=== PATIENT | female | born 1995 | race American Indian/Alaskan Native ===

== ENCOUNTER 2016-12-19 11:51 | Outpatient (CLI) | payer OTHER ==
[~2016-12-19] VITALS: Ht 157.5 cm; Wt 119.5 kg
[~2016-12-19 11:51] MED LIST: ACEPHEN325 MG PR; ACYCLOVIR400 MG PO; AZITHROMYCIN250 MG PO; BENADRYL25 MG PO; CEFDINIR300 MG PO; CITALOPRAM HBR20 MG PO; CONCERTA36 MG PO; FLAGYL500 MG PO; LABETALOL HCL100 MG PO; LAMOTRIGINE25 M2 PO; LOTRIMIN AF24 GM TP; MACROBID100 MG PO; MOBIC7.5 MG PO; MOTRIN800 MG PO; MUCINEX1200 MG PO; NASALCROM NASAL13 ML BOTH NARES; OCEAN NASAL 0.645 ML BOTH NARES; PREDNISONE10 M1 PO; PREDNISONE50 MG PO; PRENATAL TABLE1 EAC3 PO; PRENATAL TABLE1 EACH PO; PRENATAL VITAM1 EAC7 PO; PYRIDIUM200 MG PO; STRATTERA40 MG PO; TESSALON PERLE100 MG PO; VALTREX1000 MG PO; VYVANSE50 MG; ZANTAC150 MG PO; ZOFRAN ODT4 MG PO; ZOLOFT50 MG PO
[2016-12-19 12:22] VITALS: BP 132/78
[2016-12-19] MEDS ORDERED: VALTREX50 MG/ML PO (14:29)
[2016-12-19] MEDS ORDERED: TYLENOL EXTRA500 MG PO (14:30)
[2016-12-19 14:34] LABS: AMPHETAMINES QUANT VALUE 0 NG/ML; BARBITUATES QUANT VALUE 0 NG/ML; BENZODIAZEPINES QUANT VALUE 0 NG/ML; BENZODIAZEPINES, URINE SCREEN Negative (200 ng/mL); MARIJUANA QUANT VALUE 0 NG/ML; OPIATES QUANTITATIVE VALUE 0 NG/ML; PHENCYCLIDINE QUANT VALUE 0 NG/ML
[2016-12-19 15:02] LABS: DRSB INTERNAL CONTROL PASS; PROBE CHECK PASS; SPECIMEN PROCESSING CONTROL PASS
== END 2016-12-19 19:40 | disposition home or self-care (01) ==
LOC: EME 11:51 → EDSTATUS 12:00 → LDRP-OP 12:03 → 2WEST 12:04
PROVIDERS: Advanced Practice Midwife
DX: O46.93 Antepartum hemorrhage, unspecified, third trimester (principal); Z3A.37 37 weeks gestation of pregnancy
CPT/HCPCS: 59025; 76805; 87081; 87653; G0378

== ENCOUNTER 2016-12-26 13:38 | Outpatient (CLI) | payer OTHER ==
[~2016-12-26] VITALS: Ht 157.5 cm; Wt 113.3 kg
[~2016-12-26 13:38] MED LIST changes: +TYLENOL EXTRA500 MG PO; +VALTREX50 MG/ML PO
[2016-12-26 13:53] VITALS: BP 122/72
[2016-12-26 14:47] VITALS: BP 127/60
== END 2016-12-26 16:09 | disposition home or self-care (01) ==
LOC: LDRP-OP → 2WEST 13:39 → LDRP-OP 02-08 10:22
DX: O26.893 Other specified pregnancy related conditions, third trimester (principal); Z3A.34 34 weeks gestation of pregnancy
CPT/HCPCS: 59025; G0378

== ENCOUNTER 2016-12-27 15:04 | Inpatient (IN) | payer OTHER ==
[~2016-12-27] VITALS: Ht 157.5 cm; Wt 115.0 kg
[2016-12-27] VITALS (8 sets, daily range): BP systolic 127–144; BP diastolic 62–85
[2016-12-27 16:49] LABS: EOSINOPHIL (%) 0.4 % (0-5); EOSINOPHIL COUNT 0.1 K/uL (0-0.3); HEMATOCRIT 37.3 % (36.0-46.0); IMMATURE GRANULOCYTE (%) 0.4 % (0.0-0.7); IMMATURE GRANULOCYTE COUNT 0.1 K/uL; LYMPHOCYTE COUNT 3.1 K/uL (1.0-2.8); MCH 26.8 PG (29.0-34.0); MCHC 33.2 G/DL (30.0-36.0); MCV 80.6 FL (83-99); MEAN PLAT.VOLUME 10.6 uM^3 (9.5-12.4); MONOCYTE COUNT 0.8 K/uL (0-0.8); NEUTROPHIL (%) 71.3 % (45-76); PLATELET COUNT 306 K/uL (156-360); RBC DIS.WIDTH-CV 15.3 % (11.8-14.6); RBC DIS.WIDTH-SD 44.2 % (39-53); RED BLOOD COUNT 4.63 M/uL (3.80-5.20)
[2016-12-28 07:40] LABS: EOSINOPHIL (%) 0.6 % (0-5); EOSINOPHIL COUNT 0.1 K/uL (0-0.3); HEMATOCRIT 31.8 % (36.0-46.0); IMMATURE GRANULOCYTE (%) 0.3 % (0.0-0.7); LYMPHOCYTE COUNT 3.3 K/uL (1.0-2.8); MCH 26.1 PG (29.0-34.0); MCHC 32.4 G/DL (30.0-36.0); MCV 80.7 FL (83-99); MONOCYTE COUNT 0.7 K/uL (0-0.8); NEUTROPHIL (%) 70.8 % (45-76); NEUTROPHIL COUNT 10.1 K/uL (1.8-6.4); RBC DIS.WIDTH-CV 15.1 % (11.8-14.6); RBC DIS.WIDTH-SD 44.1 % (39-53); RED BLOOD COUNT 3.94 M/uL (3.80-5.20); WHITE BLOOD COUNT 14.3 K/uL (4.1-10.2)
[2016-12-28 08:38] LABS: PLATELET COUNT UNABLE TO REPORT K/uL (156-360); USER ID TLW
[2016-12-28 08:43] VITALS: BP 120/74
[2016-12-28 15:20] VITALS: BP 132/79
[2016-12-28 22:43] VITALS: BP 129/81
[2016-12-29] MEDS ORDERED: IBUPROFEN800 MG PO (09:40)
[2016-12-29] MEDS ORDERED: CAMILA0.35 MG PO (09:41)
== END 2016-12-29 13:08 | disposition home or self-care (01) | DRG 774 ==
LOC: LDRP-OP 15:04 → 2WEST 15:05 → LDRP-OP 02-06 16:17
PROVIDERS: Advanced Practice Midwife
DX: O70.0 First degree perineal laceration during delivery (principal); Z3A.38 38 weeks gestation of pregnancy; Z37.0 Single live birth; E66.01 Morbid (severe) obesity due to excess calories; Z68.43 Body mass index [BMI] 50.0-59.9, adult; A60.09 Herpesviral infection of other urogenital tract; O98.32 Other infections with a predominantly sexual mode of transmission complicating childbirth; O99.214 Obesity complicating childbirth
CPT/HCPCS: 85025; J0595; J7120

== ENCOUNTER 2017-03-04 15:53 | Emergency (ER) | payer OTHER ==
[~2017-03-04] VITALS: Ht 157.5 cm; Wt 84.7 kg
[~2017-03-04 15:53] MED LIST changes: +CAMILA0.35 MG PO; +IBUPROFEN800 MG PO
[2017-03-04 18:33] VITALS: BP 121/73
== END 2017-03-04 18:33 | disposition home or self-care (01) ==
LOC: EXP 15:53 → EME 15:53 → EXP 18:33
DX: R11.0 Nausea (principal); R10.31 Right lower quadrant pain; Z87.440 Personal history of urinary (tract) infections; Z91.5 Personal history of self-harm; Z87.891 Personal history of nicotine dependence
CPT/HCPCS: 99281; 99283

== ENCOUNTER 2017-03-27 17:54 | Emergency (ER) | payer OTHER ==
[~2017-03-27] VITALS: Ht 157.5 cm; Wt 116.9 kg
[2017-03-27 18:30] VITALS: BP 152/94
[2017-03-27 19:04] LABS: QUANTITATIVE HCG 84.7 MIU/ML
[2017-03-27 19:06] LABS: HEMATOCRIT 36.3 % (36.0-46.0); MCHC 31.7 G/DL (30.0-36.0); MCV 81.9 FL (83-99); MEAN PLAT.VOLUME 10.7 uM^3 (9.5-12.4); PLATELET COUNT 307 K/uL (156-360); RBC DIS.WIDTH-CV 15.3 % (11.8-14.6); RBC DIS.WIDTH-SD 46.1 % (39-53); RED BLOOD COUNT 4.43 M/uL (3.80-5.20)
[2017-03-27 19:09] LABS: CHLORIDE 108 mEq/L (99-109); POTASSIUM 4.1 mEq/L (3.7-5.4); SODIUM 140 mEq/L (136-147)
[2017-03-27 19:11] LABS: GLUCOSE 98 mg/dL (70-99)
[2017-03-27 19:12] LABS: ANION GAP 9 MEQ/L (2-14)
[2017-03-27 19:13] LABS: TOTAL BILIRUBIN 0.4 mg/dL (0.0-1.0)
[2017-03-27 19:14] LABS: ALKALINE PHOSPHATASE 80 IU/L (3-129)
[2017-03-27 19:15] LABS: GFR ESTIMATE (CALCULATED) > 59 mL/min/
[2017-03-27 19:16] LABS: UREA NITROGEN (BUN) 13 mg/dL (9-23)
[2017-03-27 19:18] LABS: LIPASE 10 U/L (1.0-51.0)
[2017-03-27 19:19] LABS: ADD MIUA? YES; BILIRUBIN NEGATIVE; BLOOD SMALL; COLOR YELLOW ((YELLOW)); GLUCOSE (STRIP) NEGATIVE; KETONES NEGATIVE; LEUKOCYTES LARGE; NITRITE NEGATIVE; PROTEIN (STRIP) 30; SPECIFIC GRAVITY 1.015 (1.000-1.030); UROBILINOGEN 0.2 MG/DL (0.2-1.0)
[2017-03-27] MEDS ORDERED: KEFLEX500 MG PO (19:34)
[2017-03-27 19:42] LABS: BACTERIA 1+ /HPF; EPITHELIAL CELLS 3+ /HPF; MUCUS NONE SEEN /LPF; RED BLOOD CELLS 0-5 /HPF (0-5); WHITE BLOOD CELLS 40-50 /HPF (0-5)
== END 2017-03-27 19:50 | disposition home or self-care (01) ==
LOC: EME 17:54
PROVIDERS: Nurse Practitioner Family
DX: O23.41 Unspecified infection of urinary tract in pregnancy, first trimester (principal); Z87.891 Personal history of nicotine dependence
CPT/HCPCS: 80053; 81003; 83690; 84702; 85027; 99281; 99284

== ENCOUNTER 2017-04-26 16:07 | Emergency (ER) | payer OTHER ==
[~2017-04-26] VITALS: Ht 157.5 cm; Wt 119.3 kg
[~2017-04-26 16:07] MED LIST changes: +KEFLEX500 MG PO
[2017-04-26 18:15] LABS: ADD MIUA? YES; BILIRUBIN NEGATIVE; BLOOD NEGATIVE; COLOR YELLOW ((YELLOW)); GLUCOSE (STRIP) NEGATIVE; KETONES NEGATIVE; LEUKOCYTES LARGE; NITRITE NEGATIVE; PROTEIN (STRIP) 30; SPECIFIC GRAVITY 1.024 (1.000-1.030); UROBILINOGEN 0.2 MG/DL (0.2-1.0)
[2017-04-26 18:28] LABS: INTERNAL CONTROL VALID? YES
[2017-04-26 18:32] LABS: BACTERIA RARE /HPF; EPITHELIAL CELLS 2+ /HPF; MUCUS TRACE /LPF; RED BLOOD CELLS NONE SEEN /HPF (0-5); UCUL ADDED? NO; WHITE BLOOD CELLS 30-40 /HPF (0-5)
[2017-04-26] MEDS ORDERED: MONISTAT VG (22:45)
[2017-04-26 23:14] VITALS: BP 127/63
== END 2017-04-26 23:16 | disposition home or self-care (01) ==
LOC: EME 16:07
DX: O26.891 Other specified pregnancy related conditions, first trimester (principal); R10.2 Pelvic and perineal pain; Z3A.08 8 weeks gestation of pregnancy; Z87.891 Personal history of nicotine dependence
CPT/HCPCS: 76801; 81003; 84702; 84703; 99281; 99284

== ENCOUNTER 2017-05-23 18:24 | Emergency (ER) | payer OTHER ==
[~2017-05-23] VITALS: Ht 157.5 cm; Wt 116.5 kg
[~2017-05-23 18:24] MED LIST changes: +MONISTAT VG
[2017-05-23 21:04] LABS: HEMATOCRIT 37.7 % (36.0-46.0); MCH 26.4 PG (29.0-34.0); MCHC 32.4 G/DL (30.0-36.0); MCV 81.6 FL (83-99); MEAN PLAT.VOLUME 10.9 uM^3 (9.5-12.4); PLATELET COUNT 291 K/uL (156-360); RBC DIS.WIDTH-CV 14.8 % (11.8-14.6); RBC DIS.WIDTH-SD 43.5 % (39-53); RED BLOOD COUNT 4.62 M/uL (3.80-5.20); WHITE BLOOD COUNT 12.4 K/uL (4.1-10.2)
[2017-05-23 21:16] LABS: ADD MIUA? YES; BILIRUBIN NEGATIVE; BLOOD SMALL; COLOR AMBER ((YELLOW)); GLUCOSE (STRIP) NEGATIVE; KETONES NEGATIVE; LEUKOCYTES LARGE; NITRITE NEGATIVE; PROTEIN (STRIP) 30; SPECIFIC GRAVITY 1.024 (1.000-1.030); UROBILINOGEN 0.2 MG/DL (0.2-1.0)
[2017-05-23 21:16] LABS: CHLORIDE 106 mEq/L (99-109); POTASSIUM 3.9 mEq/L (3.7-5.4); SODIUM 137 mEq/L (136-147)
[2017-05-23 21:18] LABS: GLUCOSE 80 mg/dL (70-99)
[2017-05-23 21:19] LABS: ANION GAP 9 MEQ/L (2-14)
[2017-05-23 21:20] LABS: TOTAL BILIRUBIN 0.3 mg/dL (0.0-1.0)
[2017-05-23 21:22] LABS: ALKALINE PHOSPHATASE 66 IU/L (3-129); GFR ESTIMATE (CALCULATED) > 59 mL/min/
[2017-05-23 21:23] LABS: UREA NITROGEN (BUN) 7 mg/dL (9-23)
[2017-05-23 21:36] LABS: BACTERIA 3+ /HPF; CASTS NONE SEEN /LPF; CRYSTALS NONE SEEN; EPITHELIAL CELLS 2+ /HPF; MUCUS NONE SEEN /LPF; UCUL ADDED? YES; WHITE BLOOD CELLS TNTC /HPF (0-5)
[2017-05-23 21:55] LABS: QUANTITATIVE HCG 66611.9 MIU/ML
[2017-05-23] MEDS ORDERED: ACYCLOVIR400 MG PO (22:14)
[2017-05-23] MEDS ORDERED: KEFLEX500 MG PO (22:14)
[2017-05-23 22:36] VITALS: BP 141/80
== END 2017-05-23 22:37 | disposition home or self-care (01) ==
LOC: EME 18:24
PROVIDERS: Nurse Practitioner Family
DX: O20.0 Threatened abortion (principal); O23.41 Unspecified infection of urinary tract in pregnancy, first trimester; O98.511 Other viral diseases complicating pregnancy, first trimester; B00.9 Herpesviral infection, unspecified; Z3A.12 12 weeks gestation of pregnancy; Z87.891 Personal history of nicotine dependence
CPT/HCPCS: 76801; 80053; 81003; 84702; 85027; 87086; 99281; 99284

== ENCOUNTER 2017-05-27 22:36 | Emergency (ER) | payer OTHER ==
[~2017-05-27] VITALS: Ht 157.5 cm; Wt 116.2 kg
[2017-05-27 23:18] LABS: HEMATOCRIT 35.3 % (36.0-46.0); MCHC 33.4 G/DL (30.0-36.0); MCV 80.8 FL (83-99); MEAN PLAT.VOLUME 10.8 uM^3 (9.5-12.4); PLATELET COUNT 263 K/uL (156-360); RBC DIS.WIDTH-CV 14.7 % (11.8-14.6); RED BLOOD COUNT 4.37 M/uL (3.80-5.20); WHITE BLOOD COUNT 12.6 K/uL (4.1-10.2)
[2017-05-28 01:56] LABS: ADD MIUA? YES; BILIRUBIN NEGATIVE; BLOOD LARGE; GLUCOSE (STRIP) NEGATIVE; KETONES NEGATIVE; LEUKOCYTES LARGE; NITRITE NEGATIVE; PROTEIN (STRIP) 100; UROBILINOGEN 0.2 MG/DL (0.2-1.0)
[2017-05-28 02:00] LABS: COLOR RED ((YELLOW))
[2017-05-28 02:23] LABS: RED BLOOD CELLS TNTC /HPF (0-5); UCUL ADDED? YES; WHITE BLOOD CELLS TNTC /HPF (0-5)
[2017-05-28 04:21] VITALS: BP 128/75
== END 2017-05-28 04:22 | disposition home or self-care (01) ==
LOC: EXP 22:36 → EME 22:36 → EXP 05-28 04:22
PROVIDERS: Emergency Medicine
DX: O20.9 Hemorrhage in early pregnancy, unspecified (principal); Z3A.12 12 weeks gestation of pregnancy; Z87.891 Personal history of nicotine dependence
CPT/HCPCS: 76801; 81003; 84702; 85027; 86870; 86900; 86901; 87086; 99281; 99284

== ENCOUNTER 2017-07-29 18:36 | Emergency (ER) | payer OTHER ==
[~2017-07-29] VITALS: Ht 157.5 cm; Wt 117.6 kg
[2017-07-29 20:07] LABS: HEMATOCRIT 34.7 % (36.0-46.0); MCH 26.8 PG (29.0-34.0); MCHC 32.6 G/DL (30.0-36.0); MCV 82.2 FL (83-99); MEAN PLAT.VOLUME 10.6 uM^3 (9.5-12.4); PLATELET COUNT 268 K/uL (156-360); RBC DIS.WIDTH-CV 14.7 % (11.8-14.6); RBC DIS.WIDTH-SD 43.7 % (39-53); RED BLOOD COUNT 4.22 M/uL (3.80-5.20); WHITE BLOOD COUNT 12.9 K/uL (4.1-10.2)
[2017-07-29 20:15] LABS: ADD MIUA? YES; BILIRUBIN NEGATIVE; BLOOD SMALL; COLOR AMBER ((YELLOW)); GLUCOSE (STRIP) NEGATIVE; KETONES NEGATIVE; LEUKOCYTES LARGE; NITRITE NEGATIVE; PROTEIN (STRIP) >=500; SPECIFIC GRAVITY 1.028 (1.000-1.030)
[2017-07-29 20:24] LABS: CHLORIDE 106 mEq/L (99-109); POTASSIUM 3.7 mEq/L (3.7-5.4); SODIUM 138 mEq/L (136-147)
[2017-07-29 20:26] LABS: GLUCOSE 85 mg/dL (70-99)
[2017-07-29 20:27] LABS: ANION GAP 10 MEQ/L (2-14)
[2017-07-29 20:28] LABS: TOTAL BILIRUBIN 0.2 mg/dL (0.0-1.0)
[2017-07-29 20:29] LABS: ALKALINE PHOSPHATASE 68 IU/L (3-129)
[2017-07-29 20:30] LABS: GFR ESTIMATE (CALCULATED) > 59 mL/min/
[2017-07-29 20:31] LABS: UREA NITROGEN (BUN) 4 mg/dL (9-23)
[2017-07-29 20:39] LABS: QUANTITATIVE HCG 14156.7 MIU/ML
[2017-07-29 20:43] LABS: BACTERIA RARE /HPF; EPITHELIAL CELLS RARE /HPF; MUCUS TRACE /LPF; RED BLOOD CELLS 0-5 /HPF (0-5); UCUL ADDED? NO; WHITE BLOOD CELLS 0-5 /HPF (0-5)
[2017-07-29 21:20] VITALS: BP 126/75
== END 2017-07-29 21:20 | disposition home or self-care (01) ==
LOC: RME 18:36 → EME 18:36 → RME 21:20
DX: O26.892 Other specified pregnancy related conditions, second trimester (principal); N89.8 Other specified noninflammatory disorders of vagina; Z87.891 Personal history of nicotine dependence
CPT/HCPCS: 80053; 81003; 84702; 85027; 99281; 99282

== ENCOUNTER 2017-12-05 07:23 | Inpatient (IN) | payer OTHER ==
[2017-12-05] VITALS (15 sets, daily range): BP systolic 105–146; BP diastolic 52–95
[~2017-12-05] VITALS: Ht 154.9 cm; Wt 124.1 kg
[2017-12-05 09:53] LABS: BASOPHIL (%) 0.2 % (0-1); EOSINOPHIL (%) 1.8 % (0-5); EOSINOPHIL COUNT 0.2 K/uL (0-0.3); HEMATOCRIT 33.9 % (36.0-46.0); HEMOGLOBIN 10.2 G/DL (11.9-15.5); IMMATURE GRANULOCYTE (%) 0.5 % (0.0-0.7); LYMPHOCYTE COUNT 2.5 K/uL (1.0-2.8); MCH 23.7 PG (29.0-34.0); MCHC 30.1 G/DL (30.0-36.0); MCV 78.8 FL (83-99); MONOCYTE COUNT 0.7 K/uL (0-0.8); NEUTROPHIL (%) 64.5 % (45-76); NEUTROPHIL COUNT 6.2 K/uL (1.8-6.4); PLATELET COUNT 260 K/uL (156-360); RBC DIS.WIDTH-SD 44.9 % (39-53); WHITE BLOOD COUNT 9.5 K/uL (4.1-10.2)
[2017-12-06 07:14] VITALS: BP 143/76
[2017-12-06 07:46] LABS: AMPHETAMINE NEGATIVE (500 ng/mL); BARBITURATES NEGATIVE (200 ng/mL); BENZODIAZEPINES NEGATIVE (150 ng/mL); BUPRENORPHINE NEGATIVE (10 ng/mL); COCAINE NEGATIVE (150 ng/mL); METHADONE NEGATIVE (200 ng/mL); METHAMPHETAMINE NEGATIVE (500 ng/mL); OPIATES (MORPHINE) NEGATIVE (100 ng/mL); OXYCODONE PRESUMPTIVE POSITIVE (100 ng/mL); PHENCYCLIDINE NEGATIVE (25 ng/mL); PROPOXYPHENE NEGATIVE (300 ng/mL); THC CANNABINOIDS NEGATIVE (50 ng/mL); TRICYCLIC ANTIDEPRESSANTS NEGATIVE (300 ng/mL)
[2017-12-06 08:29] LABS: BASOPHIL (%) 0.3 % (0-1); EOSINOPHIL (%) 1.6 % (0-5); EOSINOPHIL COUNT 0.2 K/uL (0-0.3); HEMATOCRIT 29.9 % (36.0-46.0); HEMOGLOBIN 9.3 G/DL (11.9-15.5); IMMATURE GRANULOCYTE (%) 0.3 % (0.0-0.7); LYMPHOCYTE (%) 29.9 % (15-42); LYMPHOCYTE COUNT 3.6 K/uL (1.0-2.8); MCH 23.7 PG (29.0-34.0); MCHC 31.1 G/DL (30.0-36.0); MCV 76.1 FL (83-99); MONOCYTE (%) 6.3 % (3-12); MONOCYTE COUNT 0.8 K/uL (0-0.8); NEUTROPHIL (%) 61.6 % (45-76); NEUTROPHIL COUNT 7.5 K/uL (1.8-6.4); PLATELET COUNT 241 K/uL (156-360); RBC DIS.WIDTH-CV 15.7 % (11.8-14.6); RBC DIS.WIDTH-SD 42.9 % (39-53); RED BLOOD COUNT 3.93 M/uL (3.80-5.20); WHITE BLOOD COUNT 12.2 K/uL (4.1-10.2)
[2017-12-06 14:42] VITALS: BP 128/76
[2017-12-06 22:28] VITALS: BP 138/78
[2017-12-07] MEDS ORDERED: IBUPROFEN800 MG PO (10:49)
== END 2017-12-07 13:34 | disposition home or self-care (01) | DRG 774 ==
LOC: LDRP-OP → 2WEST 07:24 → LDRP-OP 11:55 → 2WEST 16:38 → LDRP-OP 01-03 09:16
PROVIDERS: Advanced Practice Midwife; Obstetrics & Gynecology
DX: O99.211 Obesity complicating pregnancy, first trimester (principal); Z68.42 Body mass index [BMI] 45.0-49.9, adult; Z87.891 Personal history of nicotine dependence; Z87.440 Personal history of urinary (tract) infections; D62 Acute posthemorrhagic anemia; F32.9 Major depressive disorder, single episode, unspecified; O99.341 Other mental disorders complicating pregnancy, first trimester; Z3A.09 9 weeks gestation of pregnancy; E66.01 Morbid (severe) obesity due to excess calories; O69.82X0 Labor and delivery complicated by other cord entanglement, without compression, not applicable or unspecified; Z3A.00 Weeks of gestation of pregnancy not specified; O98.32 Other infections with a predominantly sexual mode of transmission complicating childbirth; A60.00 Herpesviral infection of urogenital system, unspecified; Z37.0 Single live birth
CPT/HCPCS: 82948; 83036; 85025; J0595; J7120

== ENCOUNTER 2018-02-28 12:22 | Emergency (ER) | payer OTHER ==
[~2018-02-28] VITALS: Ht 157.5 cm; Wt 123.6 kg
[2018-02-28 13:49] LABS: HEMATOCRIT 39.6 % (36.0-46.0); HEMOGLOBIN 12.9 G/DL (11.9-15.5); MCH 25.6 PG (29.0-34.0); MCHC 32.6 G/DL (30.0-36.0); MCV 78.7 FL (83-99); PLATELET COUNT 339 K/uL (156-360); RBC DIS.WIDTH-CV 18.3 % (11.8-14.6); RBC DIS.WIDTH-SD 50.7 % (39-53); RED BLOOD COUNT 5.03 M/uL (3.80-5.20); WHITE BLOOD COUNT 10.8 K/uL (4.1-10.2)
[2018-02-28 13:57] LABS: APPEARANCE CLOUDY ((CLEAR)); BILIRUBIN NEGATIVE; BLOOD NEGATIVE; COLOR YELLOW ((YELLOW)); GLUCOSE (STRIP) NEGATIVE; KETONES NEGATIVE; LEUKOCYTES NEGATIVE; NITRITE NEGATIVE; PROTEIN (STRIP) 30; SPECIFIC GRAVITY 1.026 (1.000-1.030); UROBILINOGEN 0.2 MG/DL (0.2-1.0)
[2018-02-28 14:01] LABS: ALBUMIN 4.4 g/dL (3.2-4.8); CHLORIDE 106 mEq/L (99-109); POTASSIUM 3.7 mEq/L (3.7-5.4); SODIUM 142 mEq/L (136-147)
[2018-02-28 14:03] LABS: BACTERIA RARE /HPF; EPITHELIAL CELLS 3+ /HPF; HYALINE CASTS 0-5 /LPF; MUCUS 2+ /LPF; RED BLOOD CELLS 0-5 /HPF (0-5); UCUL ADDED? NO; WHITE BLOOD CELLS 0-5 /HPF (0-5)
[2018-02-28 14:03] LABS: GLUCOSE 84 mg/dL (70-99); TOTAL PROTEIN 8.3 g/dL (6.4-8.3)
[2018-02-28 14:05] LABS: TOTAL BILIRUBIN 0.7 mg/dL (0.0-1.0)
[2018-02-28 14:07] LABS: ALKALINE PHOSPHATASE 112 IU/L (3-129); CREATININE 0.7 mg/dL (0.6-1.3); GFR ESTIMATE (CALCULATED) > 59 mL/min/
[2018-02-28 14:08] LABS: UREA NITROGEN (BUN) 9 mg/dL (9-23)
[2018-02-28 14:09] LABS: AST (GOT) 20 IU/L (2-34)
[2018-02-28 14:10] LABS: ALT (GPT) 25 IU/L (3-49)
[2018-02-28 14:17] LABS: QUANTITATIVE HCG < 4.0 MIU/ML
[2018-02-28] MEDS ORDERED: BENTYL20 MG PO (15:27)
[2018-02-28] MEDS ORDERED: MOTRIN800 MG PO (15:27)
[2018-02-28 15:43] VITALS: BP 128/96
== END 2018-02-28 15:43 | disposition home or self-care (01) ==
LOC: EME 12:22
DX: R10.32 Left lower quadrant pain (principal); N91.2 Amenorrhea, unspecified; F31.9 Bipolar disorder, unspecified; F90.9 Attention-deficit hyperactivity disorder, unspecified type; F32.9 Major depressive disorder, single episode, unspecified; Z87.891 Personal history of nicotine dependence; Z87.440 Personal history of urinary (tract) infections; Z91.5 Personal history of self-harm
CPT/HCPCS: 80053; 81003; 84702; 85027; 99281; 99282

== ENCOUNTER 2018-03-19 15:39 | Emergency (ER) | payer OTHER ==
[~2018-03-19] VITALS: Ht 157.5 cm; Wt 124.7 kg
[~2018-03-19 15:39] MED LIST changes: +BENTYL20 MG PO
[2018-03-19] MEDS ORDERED: ERYTHROMYC1 APPLICAT RIGHT EYE (17:12)
[2018-03-19 17:25] VITALS: BP 118/80
== END 2018-03-19 17:27 | disposition home or self-care (01) ==
LOC: EME 15:39
DX: H10.9 Unspecified conjunctivitis (principal); J02.9 Acute pharyngitis, unspecified
CPT/HCPCS: 87651 90; 99281; 99284

== ENCOUNTER 2018-05-25 10:09 | Emergency (ER) | payer OTHER ==
[~2018-05-25] VITALS: Ht 157.5 cm; Wt 128.6 kg
[~2018-05-25 10:09] MED LIST changes: +ERYTHROMYC1 APPLICAT RIGHT EYE
[2018-05-25 10:54] LABS: APPEARANCE CLOUDY ((CLEAR)); BILIRUBIN NEGATIVE; BLOOD SMALL; COLOR YELLOW ((YELLOW)); GLUCOSE (STRIP) NEGATIVE; KETONES NEGATIVE; LEUKOCYTES LARGE; NITRITE NEGATIVE; PROTEIN (STRIP) 30; SPECIFIC GRAVITY 1.017 (1.000-1.030); UROBILINOGEN 0.2 MG/DL (0.2-1.0)
[2018-05-25 11:23] LABS: EPITHELIAL CELLS 1+ /HPF; MUCUS NONE SEEN /LPF; RED BLOOD CELLS RARE /HPF (0-5); WHITE BLOOD CELLS TNTC /HPF (0-5)
[2018-05-25 11:24] LABS: BACTERIA 1+ /HPF; UCUL ADDED? YES
[2018-05-25 12:22] LABS: HEMOGLOBIN 12.2 G/DL (11.9-15.5); MCH 25.7 PG (29.0-34.0); MCHC 32.1 G/DL (30.0-36.0); MCV 80.2 FL (83-99); PLATELET COUNT 305 K/uL (156-360); RBC DIS.WIDTH-CV 15.7 % (11.8-14.6); RBC DIS.WIDTH-SD 45.3 % (39-53); RED BLOOD COUNT 4.74 M/uL (3.80-5.20); WHITE BLOOD COUNT 11.1 K/uL (4.1-10.2)
[2018-05-25 12:37] LABS: ALBUMIN 3.9 g/dL (3.2-4.8); CHLORIDE 104 mEq/L (99-109); POTASSIUM 4.4 mEq/L (3.7-5.4); SODIUM 141 mEq/L (136-147)
[2018-05-25 12:39] LABS: GLUCOSE 92 mg/dL (70-99); TOTAL PROTEIN 7.3 g/dL (6.4-8.3)
[2018-05-25 12:41] LABS: TOTAL BILIRUBIN 0.2 mg/dL (0.0-1.0)
[2018-05-25 12:43] LABS: ALKALINE PHOSPHATASE 85 IU/L (3-129); CREATININE 0.7 mg/dL (0.6-1.3); GFR ESTIMATE (CALCULATED) > 59 mL/min/
[2018-05-25 12:44] LABS: UREA NITROGEN (BUN) 9 mg/dL (9-23)
[2018-05-25 12:45] LABS: AST (GOT) 12 IU/L (2-34)
[2018-05-25 12:48] LABS: ALT (GPT) 16 IU/L (3-49); QUANTITATIVE HCG < 4.0 MIU/ML
[2018-05-25] MEDS ORDERED: ZOFRAN4 MG PO (12:55)
[2018-05-25] MEDS ORDERED: MACROBID100 MG PO (12:55)
[2018-05-25 13:46] VITALS: BP 123/82
== END 2018-05-25 14:14 | disposition home or self-care (01) ==
LOC: EME 10:09
DX: R11.2 Nausea with vomiting, unspecified (principal); N39.0 Urinary tract infection, site not specified; B95.7 Other staphylococcus as the cause of diseases classified elsewhere; R19.7 Diarrhea, unspecified; F32.9 Major depressive disorder, single episode, unspecified; F31.9 Bipolar disorder, unspecified
CPT/HCPCS: 80053; 81003; 84702; 85027; 87077; 87086; 99281; 99284; J2405